=== PATIENT | female | born 1950 ===

== ENCOUNTER 2020-06-20 01:38 | Observation (INO) | payer OTHER ==
[~2020-06-20] VITALS: Ht 160 cm; Wt 86.2 kg
[2020-06-20] MEDS ORDERED: PREDNISONE20 MG PO ×2 (01:52→10:50)
[2020-06-20] MEDS ORDERED: NORVASC5 MG PO (01:53)
[2020-06-20] MEDS ORDERED: VENTOLIN HFA18 GM INH (01:53)
--- NOTE | 2020-06-20 06:13 | EKG ---
[facility] [address] [facility] [place], [place] [address] Signed Sinus tachycardia Otherwise normal ECG No previous ECGs available Confirmed by SHANT HAND MD ([id number] on 06/20/2020 6:13:08 AM Electronically Signed By: SHANT HAND MD 06/20/20612 PATIENT NAME: DAGOBERTO GRAVES Electrocardiogram DATE OF : 52 PHYSICIAN: SHANT HAND MD REPORT #: [id number] REPORT IS CONFIDENTIAL AND NOT TO BE RELEASED WITHOUT AUTHORIZATION
== END 2020-06-20 12:15 | disposition home or self-care (01) ==
LOC: ED 01:38 → CCU 01:39
PROVIDERS: ADMIT Internal Medicine
DX: J96.01 Acute respiratory failure with hypoxia (principal); J44.9 Chronic obstructive pulmonary disease, unspecified
CPT/HCPCS: 71045; 80053; 83880; 84484; 85025; 93005; 93010; 94640; 94644; 94660; 94664; 94761; 96374; 99285-25; C9803; G0378; J2930; J7512; U0003